=== PATIENT | male | born 1985 | race Caucasian/White ===

== ENCOUNTER → 2019-05-26 16:15 | Outpatient (BNVA) | payer SELFPAY | PROVIDERS: Family Provider Registered Nurse; PCP Registered Nurse; Referring Provider Nurse Practitioner Family; Visit Provider Podiatrist Foot & Ankle Surgery | DX: S92.502A Displaced unspecified fracture of left lesser toe(s), initial encounter for closed fracture (principal); X58.XXXA Exposure to other specified factors, initial encounter | CPT/HCPCS: 73630 ==

== ENCOUNTER 2019-05-26 16:50 | Outpatient (CLI) | payer SELFPAY | END 2019-05-26 16:51 | disposition home or self-care (01) | LOC: SPT 16:51 | PROVIDERS: Family Provider Registered Nurse; PCP Registered Nurse; Visit Provider Podiatrist Foot & Ankle Surgery | DX: Z46.89 Encounter for fitting and adjustment of other specified devices (principal); S92.522D Displaced fracture of middle phalanx of left lesser toe(s), subsequent encounter for fracture with routine healing; X58.XXXD Exposure to other specified factors, subsequent encounter | CPT/HCPCS: L4361 ==

== ENCOUNTER → 2020-07-16 08:26 | Outpatient (BNVA) | payer SELFPAY | PROVIDERS: Family Provider Registered Nurse; PCP Registered Nurse; Visit Provider Registered Nurse | DX: Z00.00 Encounter for general adult medical examination without abnormal findings (principal); Z13.6 Encounter for screening for cardiovascular disorders | CPT/HCPCS: 80053; 80061; 85025 ==